=== PATIENT | female | born 1955 | race African-American/Black ===

== ENCOUNTER 2020-08-22 10:25 | Emergency (ER) | payer OTHER, BC ==
[~2020-08-22] VITALS: Ht 170.2 cm; Wt 100.7 kg
--- NOTE | 2020-08-22 10:30 | NUR ---
Patient to ER bed 7 to gown for evaluation. Side rails up.
[2020-08-22 10:35] VITALS: BP_SYST 145
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
[2020-08-22] MEDS ORDERED: KETOROLAC TROMETHAMINE 60 MG/2 ML VIAL IM ONE (10:45)
--- NOTE | 2020-08-22 10:45 | NUR ---
ER Dr. Morton at bedside examining patient.
--- NOTE | 2020-08-22 10:55 | NUR ---
Patient transported to radiology via wheelchair, accompanied by staff.
--- NOTE | 2020-08-22 11:30 | NUR ---
Patient given written and verbal discharge instructions and verbalizes understanding. ER MD discussed with patient the results and treatment provided. Patient in stable condition. ID arm band removed. Rx of Motrin and Soma given. Patient educated on pain management and to follow up with PMD. Pain Scale 0. Opportunity for questions provided and answered. Medication side effect fact sheet provided.
[2020-08-22 11:32] VITALS: BP_SYST 145
== END 2020-08-22 11:30 | disposition home or self-care (01) ==
LOC: SED 10:25
DX: S33.5XXA Sprain of ligaments of lumbar spine, initial encounter (principal); V49.49XA Driver injured in collision with other motor vehicles in traffic accident, initial encounter; Y93.89 Activity, other specified; Y92.89 Other specified places as the place of occurrence of the external cause; Y99.8 Other external cause status
CPT/HCPCS: 72100; 96372; 99283; J1885

== ENCOUNTER 2023-05-23 09:36 | Emergency (ER) | payer OTHER, MEDICARE ==
[~2023-05-23] VITALS: Ht 170.2 cm; Wt 108.9 kg
[2023-05-23 09:37] VITALS: BP_SYST 146; PULSE 85; RESP 24; TEMP 97.2; O2SAT 99
[2023-05-23 10:21] LABS: BASOPHILS # (AUTO) 0.1 K/uL (0.0-0.2); BASOPHILS % (AUTO) 1.2 % (0.0-2.0); EOSINOPHILS % (AUTO) 0.5 % (0.0-4.0); HEMATOCRIT 33.2 % (36-48); HEMOGLOBIN 10.7 g/dL (12.0-16.0); LYMPHOCYTES # (AUTO) 1.7 K/uL (1.0-5.5); LYMPHOCYTES % (AUTO) 23.8 % (20.5-51.5); MEAN CORPUSCULAR HEMOGLOBIN 25 pg (27-31); MEAN CORPUSCULAR HGB CONC 32 % (32-36); MEAN CORPUSCULAR VOLUME 76 fL (79.0-98.0); MONOCYTES # (AUTO) 0.3 K/uL (0.0-1.0); MONOCYTES % (AUTO) 4.5 % (1.7-9.3); PLATELET COUNT (AUTO) 636 K/uL (130-430); RED BLOOD CELL COUNT(AUTO) 4.39 MIL/uL (4.2-6.2); RED CELL DISTRIBUTION WIDTH 21.4 % (9.0-15.0); WHITE BLOOD COUNT (AUTO) 7.2 K/uL (4.8-10.8)
[2023-05-23 10:35] LABS: BILIRUBIN,URINE NEGATIVE (NEGATIVE); BLOOD, URINE NEGATIVE (NEGATIVE); GLUCOSE,URINE TRACE (NEGATIVE); KETONES,URINE NEGATIVE (NEGATIVE); LEUKOCYTE ESTERASE ,URINE NEGATIVE (NEGATIVE); NITRITE, URINE NEGATIVE (NEGATIVE); PH,URINE 6.5 (5.0-8.0); PROTEIN URINE 2+ (NEGATIVE); UROBILINOGEN,URINE 0.2 (0.2-1.0)
[2023-05-23 10:37] LABS: ALANINE AMINOTRANSFERASE 17 U/L (12-78); ALBUMIN 3.4 g/dL (3.4-4.8); ANION GAP 10 (5-15); ASPARTATE AMINOTRANSFERASE 17 U/L (10-37); CARBON DIOXIDE 27 mmol/L (23-29); CHLORIDE 103 mmol/L (98-107); GFR AFRICAN AMERICAN 64 mL/min (>90); GLUCOSE 123 mg/dL (74-106); POTASSIUM 3.4 mmol/L (3.5-5.1); SODIUM SERUM 140 mmol/L (136-145); TOTAL BILIRUBIN 0.3 mg/dL (0.0-1.0); UREA NITROGEN, BLOOD 18 mg/dL (8-21)
[2023-05-23 10:39] LABS: BILIRUBIN,DIRECT 0.1 mg/dL (0.0-0.3)
[2023-05-23 10:40] LABS: GFR NON AFRICAN-AMERICAN 53 mL/min (>90)
[2023-05-23 10:47] LABS: CLARITY/URINE SLIGHTLY HAZY (CLEAR)
[2023-05-23 10:49] LABS: COLOR,URINE YELLOW (YELLOW)
[2023-05-23 10:50] LABS: URINE SULFO SALICYLIC ACID NEGATIVE (NEGATIVE)
[2023-05-23] MEDS: ONDANSETRON 4 MG ODT TAB PO ONE (11:04)
[2023-05-23] MEDS: ACETAMINOPHEN 500 MG TABLET PO ONE (11:05)
[2023-05-23 11:15] LABS: BACTERIA,URINE FEW /HPF (None Seen); RBC,URINE NONE SEEN /HPF (0-3); WBC,URINE 0-3 /HPF (0-3)
[2023-05-23 11:16] LABS: HYALINE CASTS, URINE 0-10 /LPF (None Seen); MUCUS,URINE 1+ /LPF (None Seen)
[2023-05-23 11:44] VITALS: BP_SYST 153; PULSE 86; RESP 22; TEMP 97.3; O2SAT 99
== END 2023-05-23 11:44 | disposition home or self-care (01) ==
LOC: SED 09:36
DX: R06.02 Shortness of breath (principal); E11.9 Type 2 diabetes mellitus without complications; I10 Essential (primary) hypertension; Z79.899 Other long term (current) drug therapy
CPT/HCPCS: 99285; 71045; 80076; 80048; 81001; 83880; 85025; 86886; 86900; 86901; 84484; 36415; 93005; 81000; 81015; Q0162